=== PATIENT | male | born 1990 | race Caucasian/White ===

== ENCOUNTER 2019-11-02 13:27 | Emergency (ER) | payer MEDICAID ==
[~2019-11-02] VITALS: Ht 185.4 cm; Wt 80.5 kg
[~2019-11-02 13:27] MED LIST: CLIN-26 PO; LIDO20SO PO; TRAM50TA2 PO
[2019-11-02 14:07] VITALS: BP 130/60
== END 2019-11-02 15:10 | disposition home or self-care (01) ==
LOC: ER 13:27
DX: F11.10 Opioid abuse, uncomplicated (principal); F17.200 Nicotine dependence, unspecified, uncomplicated
CPT/HCPCS: 99281